=== PATIENT | male | born 1960 | race Caucasian/White ===

== ENCOUNTER 2017-03-10 13:36 | Emergency (ER) | payer MEDICAID ==
[~2017-03-10] VITALS: Ht 175.3 cm; Wt 75.3 kg
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
[2017-03-10] MEDS ORDERED: TDAP [DIPH/PERTUSSIS/TET] 0.5 ML VIAL IM ONE ×2 (14:00→14:04)
--- NOTE | 2017-03-10 14:03 | NUR ---
PATIENT WAS TAKEN TO RADIOLOGY DEPARTMENT
[2017-03-10] MEDS ORDERED: LIDOCAINE HCL/PF 1% 30 ML SDV ONE (14:30)
[2017-03-10] MEDS ORDERED: BACITRACIN ZINC OINT PACKET 1 EA PACKET TP ONE (14:30)
[2017-03-10] MEDS ORDERED: LIDOCAINE 1% INJ 50 ML MDV IJ ONE (14:30)
[2017-03-10 14:56] VITALS: BP 118/83
--- NOTE | 2017-03-10 14:56 | NUR ---
Patient discharged to home in stable condition. Written and verbal after care instructions given. Patient verbalizes understanding of instruction.
== END 2017-03-10 15:06 | disposition home or self-care (01) ==
LOC: ER 13:39
DX: S06.9X9A Unspecified intracranial injury with loss of consciousness of unspecified duration, initial encounter (principal); S01.311A Laceration without foreign body of right ear, initial encounter; S05.12XA Contusion of eyeball and orbital tissues, left eye, initial encounter; F10.129 Alcohol abuse with intoxication, unspecified; W19.XXXA Unspecified fall, initial encounter; Y93.89 Activity, other specified; Y92.89 Other specified places as the place of occurrence of the external cause; Y99.9 Unspecified external cause status
CPT/HCPCS: 12011; 70450; 71010; 90471; 90715; 99284; A4606; A6402; J3490 ×2; Z7610